=== PATIENT | male | born 1965 | race Caucasian/White ===

== ENCOUNTER 2020-07-18 19:44 | Emergency (ER) | payer OTHER ==
[~2020-07-18] VITALS: Ht 165.1 cm; Wt 70.8 kg
[2020-07-18 19:48] VITALS: BP 119/81
--- NOTE | 2020-07-18 19:58 | NUR ---
PT TAKEN TO BED 11
--- NOTE | 2020-07-18 20:00 | NUR ---
55 year old male presenting with dehydration symptoms. states n/v/d x 6 days. appetite changes. reports lightheadedness and headache. states they went to see a GI specialist x 1 day and stated he might be allergic to a certain type of food. denies any other s/sx. awaiting MSE. pmhx: denies NKDA
--- NOTE | 2020-07-18 20:08 | NUR ---
Dr. Casarez examining patient.
[2020-07-18] MEDS ORDERED: NACL 0.9% 1,000 ML IV ONE (20:15)
[2020-07-18] MEDS ORDERED: METOCLOPRAMIDE 10 MG/2 ML INJ VIAL IVP ONE (20:15)
[2020-07-18 20:30] LABS: BASOPHILS % (AUTO) 0.5 % (0.0-2.0); EOSINOPHILS # (AUTO) 0.1 K/uL (0-0.4); EOSINOPHILS % (AUTO) 1.3 % (0.0-4.0); HEMATOCRIT 40.4 % (36-52); LYMPHOCYTES # (AUTO) 1.6 K/uL (2.0-11.5); MEAN CORPUSCULAR HEMOGLOBIN 32 pg (27-31); MEAN CORPUSCULAR HGB CONC 35 g/dL (33-37); MEAN CORPUSCULAR VOLUME 91.3 fL (80-94); MONOCYTES # (AUTO) 0.5 K/uL (0.8-1.0); NEUTROPHILS # (AUTO) 3.6 K/uL (1.8-7.7); NEUTROPHILS % (AUTO) 62.2 % (42.2-75.2); PLATELET COUNT (AUTO) 214 K/uL (140-450); RED BLOOD CELL COUNT(AUTO) 4.42 MIL/uL (4.20-6.10); RED CELL DISTRIBUTION WIDTH 13.1 % (11.6-13.7); WHITE BLOOD COUNT (AUTO) 5.8 K/uL (4.8-10.8)
--- NOTE | 2020-07-18 20:31 | NUR ---
PT SIGNED CONSENT FORM FOR CT OF THE ABDOMEN/PELVIS WITH CONTRAST.
--- NOTE | 2020-07-18 20:55 | NUR ---
PT ELOPED AND LEFT THE ER WITH IV STILL INTACTED. [place] [employer] WAS CALLED.
[2020-07-18 20:57] LABS: ALBUMIN 4.2 g/dL (3.4-5.0); ANION GAP 14.2 (8-16); CARBON DIOXIDE 25.8 mmol/L (21-32); CREATININE 0.8 mg/dL (0.6-1.3); TOTAL BILIRUBIN 0.5 mg/dL (0.0-1.0)
--- NOTE | 2020-07-18 21:05 | NUR ---
CALLED [facility]. PT ELOPED WITH IV IN PLACE. SPOKE WITH LAURO AND STATED PD WILL INITIATE WELLNESS CHECK.
== END 2020-07-18 20:55 | disposition left against medical advice (07) ==
LOC: MED 19:44
DX: R10.9 Unspecified abdominal pain (principal); R11.2 Nausea with vomiting, unspecified; R19.7 Diarrhea, unspecified; R14.0 Abdominal distension (gaseous); Z88.8 Allergy status to other drugs, medicaments and biological substances
CPT/HCPCS: 36415; 80053; 83690; 85025; 96374; 99283; J2765; J7030